=== PATIENT | female | born 1955 | race Caucasian/White ===

== ENCOUNTER 2018-08-29 09:55 | Inpatient (IN) ==
--- NOTE | 2018-08-29 10:28 | Emergency Department Note ---
Disposition Clinical Impression: Cellulitis, History of surgery on wrist Disposition: Admitted As Inpatient Time of Disposition: 11:20 General Adult HPI - General Chief complaint: ED Skin/Abscess/Foreign Body Stated complaint: wound Time Seen by Provider: 08/29/18 10:15 - History of Present Illness HPI Narrative: 63-year-old female seen a few days ago in the emergency department for hand cellulitis. The patient reports she has been taking Bactrim and Keflex which have not been helpful. She reports she followed up yesterday and the recommendation was for continued Keflex and Bactrim, however today her hands become more red and swollen with spreading redness beyond the demarcation pen lines delineating the original infection. The patient reports he may have been provoked or scratched a few days ago. X-rays were negative in the emergency department for foreign body. There is no history of coldness blueness numbness or weakness right upper extremity. The patient has no history of diabetes for him is a Up-to-date she denies chest pain shortness breath abdominal pain vomiting diarrhea or any other acute complaint or concern. Progressive redness swelling and pain in the right hand wrist and forearm are reported. She has a history of prior wrist surgery. Pain Scale: 1 - Related Data Home Medications Medication Instructions Recorded Confirmed Cholecalciferol (D-3) [Vitamin D] 5,000 unit PO DAILY 10/25/17 07/04/18 Levothyroxine [Synthroid] 25 mcg PO 0630 10/25/17 07/04/18 Previous Rx's Medication Instructions Recorded Levothyroxine [Synthroid] 125 mcg PO 0630 #30 tablet 07/04/18 Sulfamethoxazole/Trimeth DS 1 each PO BID #20 tablet 08/27/18 [Bactrim DS] cephALEXin [Keflex] 500 mg PO QID #40 capsule 08/27/18 Allergies Allergy/AdvReac Type Severity Reaction Status Date / Time No Known Allergies Allergy Verified 10/25/17 08:28 All systems ED: reviewed and negative except as stated. Past Medical History - Past Medical History Medical history: Reports: arthritis, GERD, thyroid disease, other Surgical history: Reports: other Psychiatric history: Reports: no psych history - Social History Smoking Status: Never smoker Smokeless Tobacco Status: No Alcohol use: Reports: none Drug use: Reports: none Physical Exam - General Limitations: no limitations General appearance: alert, in no apparent distress - Head Head exam: atraumatic, normocephalic, normal inspection - Eye Eye exam: Present: normal appearance, PERRL, EOMI - ENT ENT exam: normal exam, normal oropharynx, mucous membranes moist - Neck Neck exam: Present: normal inspection, full ROM, trachea midline - Chest Chest inspection: Present: normal inspection, symmetric chest wall rise - Respiratory Respiratory exam: Present: normal lung sounds bilaterally. Absent: respiratory distress, prolonged expiratory phase - Cardiovascular Cardiovascular exam: Present: regular rate, normal rhythm, irregular rhythm - Abdominal Exam Abdominal exam: Present: soft, Non-Tender, normal bowel sounds. Absent: tenderness, distention, guarding, rebound, rigidity - Extremities Exam Extremities exam: Present: full ROM, normal capillary refill, other (The right hand shows swelling over the dorsum mostly and there is spreading redness and edema in the right wrist area progressing up the forearm well beyond the original pen tate delineation lines. There is an open lesion in the webspace between the first and second digits. No active drainage. No crepitance of the skin no silke blackening or blistering. There is no evidence of neurovascular or neuromuscular compromise in any extremity.). Absent: joint swelling, calf tenderness - Back Exam Back exam: Absent: tenderness, CVA tenderness (R), CVA tenderness (L), vertebral tenderness - Neurological Exam Neurological exam: Present: alert, oriented X3, CN II-XII intact. Absent: motor sensory deficit - Psychiatric Psychiatric exam: Present: normal affect, normal mood - Skin Skin exam: Present: warm, dry. Absent: cyanosis, diaphoresis Course Vital Signs Temperature 97.3 F L 08/29/18 09:57 Pulse Rate 69 08/29/18 09:57 Respiratory Rate 16 08/29/18 09:57 Blood Pressure 137/86 08/29/18 09:57 O2 Sat by Pulse Oximetry 100 08/29/18 09:57 Temperature 97.3 F L 08/29/18 10:38 Pulse Rate 69 08/29/18 10:38 Respiratory Rate 16 08/29/18 10:38 Blood Pressure 137/86 08/29/18 10:38 O2 Sat by Pulse Oximetry 100 08/29/18 10:38 Oxygen Delivery Oxygen Delivery Room Air Medical Decision Making - [facility] Narrative Medical decision making narrative: The patient's x-ray from a few days ago showed hardware intact. No foreign body identified. The patient describes increasing redness and swelling in the right upper extremity, clinical exam so significant erythema and edema. The patient does not appear to meet SIRS/sepsis criteria, however, based on the patient's progressive swelling and erythema and cellulitic change in the right upper extremity with a history of prior wrist surgery and apparent failed outpatient therapy I thought it would be appropriate to admit the patient to the hospital. IV access was ordered as well as vancomycin and Zosyn blood cultures and IV fluid. I discussed the case with the hospitalist on-call who has accepted the patient to their care, they recommended orthopedic consult and CT scan. Orthopedics has been consulted. CT scan has been ordered. The patient is agreeable to admission. - Lab Data Lab results reviewed: Yes I reviewed the patient's lab results. Result diagrams: 08/29/18 10:46 08/29/18 10:46 Lab Results 08/29/18 08/29/18 08/29/18 Range/Units 10:46 10:46 10:46 WBC 8.6 (4.3-11.1) K/mcL RBC 4.81 (3.82-4.97) M/mcL Hgb 13.0 (11.5-15.4) g/dL Hct 40.2 (35.3-44.9) % MCV 83.6 (83.0-100.0) fL MCH 27.0 L (28.0-33.3) pg MCHC 32.3 (31.6-35.5) g/dL RDW 12.7 (11.5-14.5) % Plt Count 203 (140-400) K/mcL MPV 10.9 (9.4-12.4) fL Immature Gran % 0.2 (0-4) % Seg Neutrophils % 79.4 % Lymphocytes % 10.8 % Monocytes % 7.5 % Eosinophils % 1.5 % Basophils % 0.6 % Neutrophils # 6.8 (1.6-8.9) K/mcL Lymphocytes # 0.9 (0.6-4.6) K/mcL Monocytes # 0.7 (0.0-1.3) K/mcL Eosinophils # 0.1 (0.0-0.6) K/mcL Basophils # 0.1 (0.0-0.2) K/mcL Sodium 140 (136-145) mEq/L Potassium 4.2 (3.5-5.1) mEq/L Chloride 108 H (98-107) mEq/L Carbon Dioxide 26 (23-29) mEq/L BUN 9 (8-23) mg/dL Creatinine 1.04 (0.60-1.20) mg/dL Est GFR ( Amer) > 60 (> 60) Est GFR (Non-Af Amer) 53 L (> 60) BUN/Creatinine Ratio 9 (6-26) Glucose 99 (70-105) mg/dL Calculated Osmolality 289 (280-300) Lactic Acid 0.8 (0.5-2.2) mmol/L Calcium 9.0 (8.6-10.3) mg/dL Total Bilirubin 0.4 (0.3-1.0) mg/dL AST 46 H (13-39) Units/L ALT 45 (7-52) Units/L Alkaline Phosphatase 141 H (34-104) Units/L C-Reactive Protein 92 H (Less than 10) mg/L Serum Total Protein 7.0 (6.4-8.9) g/dL Albumin 3.9 (3.5-5.7) g/dL Globulin 3.1 (2.4-3.5) g/dL Albumin/Globulin Ratio 1.3 (1.1-2.2) - Radiology Data Radiology results reviewed: Yes I reviewed the patient's radiology results.
[2018-08-29] MEDS ORDERED: 0.9 % Sodium Chloride 1,000 ML IVC ONE (10:37)
[2018-08-29] MEDS ORDERED: Piperacillin/Tazobactam 3.375 GM in Water for inj. (sterile) 20 ML 20 ML IVP ONE (10:38)
[2018-08-29 11:05] LABS: Basophils # 0.1 K/mcL (0.0-0.2); Basophils % 0.6 %; Eosinophils # 0.1 K/mcL (0.0-0.6); Eosinophils % 1.5 %; Hematocrit 40.2 % (35.3-44.9); Immature Granulocytes % 0.2 % (0-4); Lymphocytes # 0.9 K/mcL (0.6-4.6); Lymphocytes % 10.8 %; Mean Corpuscular HGB Conc 32.3 g/dL (31.6-35.5); Mean Corpuscular Volume 83.6 fL (83.0-100.0); Mean Platelet Volume 10.9 fL (9.4-12.4); Monocytes # 0.7 K/mcL (0.0-1.3); Monocytes % 7.5 %; Neutrophils # 6.8 K/mcL (1.6-8.9); Platelet Count 203 K/mcL (140-400); Red Blood Count 4.81 M/mcL (3.82-4.97); Red Cell Distribution Width 12.7 % (11.5-14.5); Segmented Neutrophils % 79.4 %
[2018-08-29 11:19] LABS: Alanine Aminotransferase 45 Units/L (7-52); Albumin 3.9 g/dL (3.5-5.7); Albumin/Globulin Ratio 1.3 (1.1-2.2); Alkaline Phosphatase 141 Units/L (34-104); Aspartate Amino Transferase 46 Units/L (13-39); BUN/Creatinine Ratio 9 (6-26); Bilirubin,Total 0.4 mg/dL (0.3-1.0); Blood Urea Nitrogen 9 mg/dL (8-23); C-Reactive Protein 92 mg/L (Less than 10); Carbon Dioxide 26 mEq/L (23-29); Chloride 108 mEq/L (98-107); Globulin 3.1 g/dL (2.4-3.5); Glucose 99 mg/dL (70-105); Osmolality,Calculated 289 (280-300); Potassium 4.2 mEq/L (3.5-5.1); Sodium 140 mEq/L (136-145); eGFR For Non-African Americans 53 (> 60)
[2018-08-29] MEDS ORDERED: Isovue-370 500 ML BOTTLE IVP ONE (11:19)
--- NOTE | 2018-08-29 14:13 | Orthopedic Consult Note ---
Date of Encounter: 08/29/18 Time of Encounter: 14:13 Assessment and Plan (1) Cellulitis of hand, right Current Visit: No Status: Acute The diagnosis and treatment conditions were discussed with the patient. No visible fluid collection on CT scan. No current plans for surgical intervention. Continue IV antibiotics per the primary team. Will continue to follow exam. History of Present Illness HPI: Ms. Hammer is a 63 year old female admitted with right hand cellulitis. Patient states this started a few days ago after puncture wound in the area of the dorsal webspace between the thumb and index finger. She progressive erythema and swelling, and pain. She is seen in the emergency department a few days ago and was started on Bactrim and Keflex, however erythema progressed and has now advanced over the dorsum of her hand toward her forearm. She does have some drainage from the puncture wound. Denies any fevers or chills, SOB, CP nausea or vomiting. Does have a history of a prior ORIF of the right distal radius. Past Med Surg Social Fam HX - Past Medical History Medical history: arthritis, GERD, thyroid disease, other Additional medical history: goiter. arhtitis- subluxation in lower back, shoulder, knees. low back, neck and shoulder pain. childhood- measles, mumps, chicken pox. [place] 2015- goiter, multiple sub CM nodules, L>R. thyroid nodule biopsy inconclusive - appears cystic - repeat US 01/2018. mod DD dysfunction, otherwise normal echo, stress test ormal - offered BB - declined Psychiatric history: no psych history - Past Surgical History Surgical History: other Additional surgical history: tonsillectomy. tubal ligation. rt wrist open reduction and internal fixation of the distal radius. thyroid biopsy. S/P D&C, hysteroscopy - Social History Smoking Status: Never smoker Smokeless Tobacco Status: No Alcohol use: none Drug use: none - Family History Father Hx Family Cancer: Yes Medications and Allergies Levothyroxine [Synthroid] 125 mcg PO 0630 #30 tablet 07/04/18 [Rx] Sulfamethoxazole/Trimeth DS [Bactrim DS] 1 each PO BID #20 tablet 08/27/18 [Rx] cephALEXin [Keflex] 500 mg PO QID #40 capsule 08/27/18 [Rx] Cholecalciferol (Vitamin D3) [Dialyvite Vitamin D] 5,000 units PO DAILY 08/29/18 [History] metroNIDAZOLE [VANDAZOLE 0.75% Vag Gel] 1 appl VG DAILY 08/29/18 [History] Allergy/AdvReac Type Severity Reaction Status Date / Time No Known Allergies Allergy Verified 08/29/18 12:21 All Systems Reviewed: The remainder of the systems were reviewed and are negative except as noted in the HPI. Physical Exam - Constitutional Vitals: Temp Pulse Resp BP Pulse Ox 97.3 F L 69 16 137/86 100 08/29/18 10:38 08/29/18 10:38 08/29/18 10:38 08/29/18 10:38 08/29/18 10:38 Exam: Consult Exam: Constitutional -Vitals reviewed -The patient is well developed and well nourished. -Mood is pleasant. -The patient is well groomed. Psychiatric -The patient is fully alert and oriented x 3. Respiratory: -Respiratory effort normal Abdomen: -Soft abdomen -Non tender -Non distended: Left upper extremity: -No deformities. The overlying skin is intact. No obvious signs of acute trauma. -No tenderness to palpation throughout. -No significant pain with passive motion of the shoulder, elbow, wrist, and fingers within the limits of the bed. -Able to make an "OK" sign, cross the index and long fingers, and extend the thumb. -Sensation grossly intact to light touch throughout the median, radial, and ulnar distributions. -Radial pulse is present; Fingers have good capillary refill. Right upper extremity: -Erythema over the dorsum of the hand extending down to the wrist and proximal forearm. Tenderness over the area. Puncture wound in the area of the dorsal aspect of the thumb and index webspace with a small amount of purulent drainage. -No significant pain with passive motion of the shoulder, elbow, wrist, and fingers within the limits of the bed. -Able to make an "OK" sign, cross the index and long fingers, and extend the thumb. -Sensation grossly intact to light touch throughout the median, radial, and ulnar distributions. -Radial pulse is present; Fingers have good capillary refill. Left lower extremity: -No deformities. The overlying skin is intact. No obvious signs of acute trauma. -No tenderness to palpation throughout. -No pain with passive motion of the hip, knee, ankle, and toes within the limits of the bed. -No pain with axial loading of the thigh. -Able to dorsiflex and plantarflex the ankle and toes. -Sensation is grossly intact to light touch throughout the sural, saphenous, superficial peroneal, and deep peroneal distributions. -Toes have good capillary refill. Right lower extremity: -No deformities. The overlying skin is intact. No obvious signs of acute trauma. -No tenderness to palpation throughout. -No pain with passive motion of the hip, knee, ankle, and toes within the limits of the bed. -No pain with axial loading of the thigh. -Able to dorsiflex and plantarflex the ankle and toes. -Sensation is grossly intact to light touch throughout the sural, saphenous, superficial peroneal, and deep peroneal distributions. -Toes have good capillary refill. Results - Labs Result Diagrams: 08/29/18 10:46 08/29/18 10:46 Labs: Abnormal lab results MCH 27.0 pg (28.0-33.3) L 08/29/18 10:46 Chloride 108 mEq/L (98-107) H 08/29/18 10:46 Est GFR (Non-Af Amer) 53 (> 60) L 08/29/18 10:46 AST 46 Units/L (13-39) H 08/29/18 10:46 141 Units/L (34-104) H 08/29/18 10:46 92 mg/L (Less than 10) H 08/29/18 10:46 H & H 08/29/18 Range/Units 10:46 Hgb 13.0 (11.5-15.4) g/dL Hct 40.2 (35.3-44.9) % All other labs normal. - Diagnostic results Wrist/Hand CT: report reviewed, image reviewed Consult Discharge Plan - Plan Referrals: Paola Pina, INDUSTRIAL [employer]PERATOR [Primary Care Provider] -
--- NOTE | 2018-08-29 15:09 | Internal Med History&Physical ---
Date of Encounter: 08/29/18 Time of Encounter: 11:00 Internal Medicine - H&P: HPI Chief complaint: hand cellulitis History of present illness: Ms. Hammer is a 63 year old female admitted with right hand erythema , warmness and tenderness of the left hand. The patient stated that she sustained a puncture wound in the area of the dorsal webspace between the thumb and index finger. and later the patient started experiencing progressive erythema and swelling, and pain. She evaluated by the ER staff couple of days prior to her presentation today and was started on antibiotic regimen with Bactrim and Keflex and was discharged home. The patient was started on empiric IV antibiotics by the ER, and was admitted for further evaluation and management. Past Med Surg Social Fam HX - Past Medical History Medical history: arthritis, GERD, thyroid disease, other Additional medical history: goiter. arhtitis- subluxation in lower back, shoulder, knees. low back, neck and shoulder pain. childhood- measles, mumps, chicken pox. [place] 2014- goiter, multiple sub CM nodules, L>R. thyroid nodule biopsy inconclusive - appears cystic - repeat US 01/2018. mod DD dysfunction, otherwise normal echo, stress test ormal - offered BB - declined Psychiatric history: no psych history - Past Surgical History Surgical History: other Additional surgical history: tonsillectomy. tubal ligation. rt wrist open reduction and internal fixation of the distal radius. thyroid biopsy. S/P D&C, hysteroscopy - Social History Smoking Status: Never smoker Smokeless Tobacco Status: No Alcohol use: none Drug use: none - Family History Father Hx Family Cancer: Yes Internal Medicine - H&P: Meds Levothyroxine [Synthroid] 125 mcg PO 0630 #30 tablet 07/04/18 [Rx] Cholecalciferol (Vitamin D3) [Dialyvite Vitamin D] 5,000 units PO DAILY 08/29/18 [History] metroNIDAZOLE [VANDAZOLE 0.75% Vag Gel] 1 appl VG DAILY 08/29/18 [History] Amoxicillin/Clavulanate [Augmentin] 875 mg PO BIDWM #12 tablet 08/30/18 [Rx] Doxycycline 100 mg PO BID #12 capsule 08/30/18 [Rx] Allergy/AdvReac Type Severity Reaction Status Date / Time No Known Allergies Allergy Verified 08/29/18 12:21 All Systems PM: A 10-system review of systems was performed and is negative for pertinent findings except as documented above in the HPI. - Constitutional Constitutional: no chills, no fever(s), no night sweats - EENT Eyes: no change in vision, no discharge, no pain, no photophobia Ears: no ear discharge, no ear pain, no tinnitus Nose, mouth and throat: no dysphagia, no nasal discharge, no neck pain, no sore throat - Cardiovascular Cardiovascular ROS IM: no chest pain, no diaphoresis, no dyspnea, no lightheadedness, no palpitations, no syncope - Respiratory Respiratory: no cough, no dyspnea, no wheezing, no excessive phlegm production - Gastrointestinal Gastrointestinal: no abdominal pain, no diarrhea, no hematemesis, no hematochezia, no melena, no nausea, no vomiting - Genitourinary Genitourinary: no change in urinary stream, no dysuria, no flank pain, no hematuria - Musculoskeletal Musculoskeletal ROS IM: no numbness, no tingling - Integumentary Integumentary IM: erythema, non-healing lesions, no rash, no unusual bruising - Neurological Neurological ROS: no confusion, no convulsions, no focal weakness, no numbness, no tingling, no tremor(s) - Hematologic/Lymphatic Hematologic/Lymphatic: no easy bruising - Constitutional Vitals: Temp Pulse Resp BP Pulse Ox 97.8 F 72 16 151/65 99 08/29/18 14:35 08/29/18 14:35 08/29/18 14:35 08/29/18 14:35 08/29/18 14:35 Exam: As below - Head Head exam: Present: atraumatic, normocephalic - Eye Eye exam: Present: PERRL, conjuntiva pink, sclera anicteric Pupils: Present: PERRL - Neck Neck exam general surgery: Present: supple, trachea midline. Absent: lymphadenopathy - Respiratory Respiratory exam: Present: CTAB. Absent: accessory muscle use, rales, rhonchi, wheezes - Cardiovascular Cardiovascular exam: Present: RRR, +S1, +S2. Absent: diastolic murmur, gallop, rubs, systolic murmur - GI/Abdominal GI/Abdominal exam: Present: normal bowel sounds, soft, no peritoneal signs. Absent: distended, tenderness - Extremities Exam Extremities exam: Present: warm, radial pulses palpable and symmetrical. Absent: calf tenderness, cyanotic, pedal edema - Neurological Exam Neurological exam: Present: CN II-XII intact, oriented X3, no focal deficits. Absent: pronater drift, facial droop, speech deficit - Skin Skin exam: Present: dry, erythema, warm Internal Med - H&P Results - Labs CBC & Chem 7: 08/29/18 17:11 08/30/18 04:23 Labs: Short CBC 08/29/18 Range/Units 10:46 WBC 8.6 (4.3-11.1) K/mcL Hgb 13.0 (11.5-15.4) g/dL Hct 40.2 (35.3-44.9) % Plt Count 203 (140-400) K/mcL Neutrophils # 6.8 (1.6-8.9) K/mcL BMP 08/29/18 10:46 Sodium 140 Potassium 4.2 Chloride 108 H Carbon Dioxide 26 BUN 9 Creatinine 1.04 Glucose 99 Calcium 9.0 Liver Function 08/29/18 Range/Units 10:46 Total Bilirubin 0.4 (0.3-1.0) mg/dL AST 46 H (13-39) Units/L ALT 45 (7-52) Units/L Alkaline Phosphatase 141 H (34-104) Units/L Albumin 3.9 (3.5-5.7) g/dL - Impressions ITS Impressions Upper Extremity CT 08/29/18 11:19 IMPRESSION: 1. Mild dorsal subcutaneous fat stranding of the distal forearm and hand compatible with cellulitis. No drainable fluid collection. 2. No acute osseous abnormality. D/ / Chito Stephens MD / Chito Stephens MD Interpreting Provider: Chito Stephens MD - Assessment and Plan (1) Cellulitis of hand, right Status: Acute Assessment and plan: visit patient on empiric IV antibiotics with vancomycin and Zosyn, surgery was consulted for further evaluation and management management (2) History of surgery on wrist Status: Acute Assessment and plan: surgery was consulted for further evaluation (3) Status post thyroidectomy Status: Acute Assessment and plan: we'll continue home thyroxin (4) DVT prophylaxis Status: Acute Assessment and plan: heparin 5000 twice a day - Time Spent With Patient Total time spent is greater than 50% in coordination of care (as documented) at patient's floor/unit and/or counseling patient:
[2018-08-29] MEDS ORDERED: OXYCODONE Oral CONC 10 MG/0.5 ML ORAL.SYG SL PRN (16:31)
[2018-08-29] MEDS ORDERED: *HR* HYDROcodone/Acet 5/325 mg TABLET PO PRN (16:31)
[2018-08-29] MEDS ORDERED: Acetaminophen 325 MG TABLET PO PRN (16:31)
[2018-08-29] MEDS ORDERED: Naloxone 0.4 MG/ML INJ IVP PRN (16:31)
[2018-08-29] MEDS ORDERED: Ondansetron ODT 4 MG TAB.RAPDIS SL PRN (16:31)
[2018-08-29] MEDS ORDERED: 0.9 % Sodium Chloride 1,000 ML IVC SCH (16:45)
[2018-08-29 17:32] LABS: Basophils # 0.1 K/mcL (0.0-0.2); Basophils % 0.8 %; Eosinophils # 0.3 K/mcL (0.0-0.6); Eosinophils % 3.9 %; Hematocrit 34.9 % (35.3-44.9); Immature Granulocytes % 0.2 % (0-4); Lymphocytes # 1.2 K/mcL (0.6-4.6); Lymphocytes % 14.1 %; Mean Corpuscular HGB Conc 32.7 g/dL (31.6-35.5); Mean Corpuscular Volume 82.5 fL (83.0-100.0); Mean Platelet Volume 11.1 fL (9.4-12.4); Monocytes # 0.8 K/mcL (0.0-1.3); Monocytes % 9.5 %; Platelet Count 180 K/mcL (140-400); Red Blood Count 4.23 M/mcL (3.82-4.97); Red Cell Distribution Width 12.8 % (11.5-14.5); Segmented Neutrophils % 71.5 %
[2018-08-29 17:33] LABS: Hemoglobin 11.4 g/dL (11.5-15.4)
[2018-08-30 05:21] LABS: Activated Partial Thrombo Time 34.4 Seconds (26.0-36.0)
[2018-08-30 05:28] LABS: Alanine Aminotransferase 28 Units/L (7-52); Albumin 3.2 g/dL (3.5-5.7); Albumin/Globulin Ratio 1.3 (1.1-2.2); Alkaline Phosphatase 104 Units/L (34-104); Aspartate Amino Transferase 21 Units/L (13-39); BUN/Creatinine Ratio 11 (6-26); Bilirubin,Total 0.4 mg/dL (0.3-1.0); Blood Urea Nitrogen 11 mg/dL (8-23); Calcium 7.9 mg/dL (8.6-10.3); Carbon Dioxide 21 mEq/L (23-29); Chloride 112 mEq/L (98-107); Chol/HDL Ratio 2.8 (0-4.9); Cholesterol 147 mg/dL (< 200); Globulin 2.4 g/dL (2.4-3.5); Glucose 94 mg/dL (70-105); HDL Cholesterol 53 mg/dL (40-59); LDL Cholesterol,Calculated 82 mg/dL (0-99); Osmolality,Calculated 289 (280-300); Phosphorous 2.3 mg/dL (2.7-4.5); Potassium 3.8 mEq/L (3.5-5.1); Sodium 140 mEq/L (136-145); Total Protein 5.6 g/dL (6.4-8.9); Triglycerides 59 mg/dL (< 150); eGFR For Non-African Americans 53 (> 60)
[2018-08-30] MEDS ORDERED: Piperacillin/Tazobactam 3.375 GM in 0.9 % Sodium Chloride Mini Bag 100 ML IVPB SCH (08:00)
[2018-08-30] MEDS ORDERED: Cholecalciferol (D-3) 1,000 UNIT TABLET PO SCH (09:00)
--- NOTE | 2018-08-30 12:13 | Internal Med Progress Note ---
Hospitalist Progress Note - Encounter Date of Encounter: 08/30/18 - Exam Vitals: Temp Pulse Resp BP Pulse Ox 98.0 F 79 16 109/72 97 08/30/18 10:05 08/30/18 10:05 08/30/18 10:05 08/30/18 10:05 08/30/18 10:05 - Assessment and Plan (1) Cellulitis of hand, right Current Visit: No Status: Acute Assessment and Plan: visit patient on empiric IV antibiotics with vancomycin and Zosyn, surgery was consulted for further evaluation and management management (2) Status post thyroidectomy Current Visit: No Status: Acute Assessment and Plan: we'll continue home thyroxin (3) History of surgery on wrist Current Visit: Yes Status: Acute Assessment and Plan: surgery was consulted for further evaluation (4) DVT prophylaxis Current Visit: Yes Status: Acute - Time Spent with Patient Total time spent is greater than 50% in coordination of care (as documented) at patient's floor/unit and/or counseling patient: Internal Medicine: Result - Labs CBC & Chem 7: 08/29/18 17:11 08/30/18 04:23 Labs: Short CBC 08/29/18 Range/Units 17:11 WBC 8.5 (4.3-11.1) K/mcL Hgb 11.4 L D (11.5-15.4) g/dL Hct 34.9 L (35.3-44.9) % Plt Count 180 (140-400) K/mcL Neutrophils # 6.0 (1.6-8.9) K/mcL BMP 08/30/18 04:23 Sodium 140 Potassium 3.8 Chloride 112 H Carbon Dioxide 21 L BUN 11 Creatinine 1.04 Glucose 94 Calcium 7.9 L Liver Function 08/30/18 Range/Units 04:23 Total Bilirubin 0.4 (0.3-1.0) mg/dL AST 21 (13-39) Units/L ALT 28 (7-52) Units/L Alkaline Phosphatase 104 (34-104) Units/L Albumin 3.2 L (3.5-5.7) g/dL - ABG Interpretation ABG results: PT/INR, D-dimer PT 11.0 Seconds (9.4-12.1) 08/30/18 04:23 - Impressions Impressions Upper Extremity CT 08/29/18 11:19 IMPRESSION: 1. Mild dorsal subcutaneous fat stranding of the distal forearm and hand compatible with cellulitis. No drainable fluid collection. 2. No acute osseous abnormality. D/ / Chito Stephens MD / Chito Stephens MD Interpreting Provider: Chito Stephens MD Consult Discharge Plan - Plan Referrals: Paola Pina, [employer] COORDIN[employer]ETING [employer]ES [Primary Care Provider] -
[2018-08-30 14:05] VITALS: BP 132/79
--- NOTE | 2018-08-30 17:07 | Discharge Summary ---
Orders not resulted at time of discharge: Pending orders 08/29/18 11:49 Culture,Blood [BC] Stat 09/01/18 04:00 Vancomycin,Trough Timed Date of Encounter: 08/30/18 Time of Encounter: 17:00 - Discharge Diagnosis (1) Cellulitis of hand, right Priority: Primary Status: Acute Assessment and Plan: 63 year old female admitted with right hand erythema , warmness and tenderness of the left hand. The patient stated that she sustained a puncture wound in the area of the dorsal webspace between the thumb and index finger. and later the patient started experiencing progressive erythema and swelling, and pain. She evaluated by the ER staff couple of days prior to her presentation today and was started on antibiotic regimen with Bactrim and Keflex and was discharged home. The patient was started on empiric IV antibiotics by the ER, and was admitted for further evaluation and management. She was started on on empiric IV antibiotics with vancomycin and Zosyn. Orthopedic surgery was consulted for further evaluation and management management. BY next day, her swelling and redness had reduced considerably. Per cori, ortho was paged and said patient was okay to go home with no surgical intervention indicated. She was discharged to complete a course of augmentin and doxycycline fro 6 days (2) Status post thyroidectomy Priority: Primary Status: Acute (3) History of surgery on wrist Priority: Primary Status: Acute (4) DVT prophylaxis Priority: Primary Status: Acute Hospital course: Ms. Hammer is a 63 year old female - Time Spent with Patient Total time spent providing and/or coordinating discharge services: - Discharge Medications Prescriptions: New Amoxicillin/Clavulanate [Augmentin] 875 mg PO BIDWM #12 tablet Doxycycline 100 mg PO BID #12 capsule Continued Levothyroxine [Synthroid] 125 mcg PO 0630 #30 tablet Cholecalciferol (Vitamin D3) [Dialyvite Vitamin D] 5,000 units PO DAILY metroNIDAZOLE [VANDAZOLE 0.75% Vag Gel] 1 appl VG DAILY Discontinued Sulfamethoxazole/Trimeth DS [Bactrim DS] 1 each PO BID #20 tablet cephALEXin [Keflex] 500 mg PO QID #40 capsule Home Medications: Levothyroxine [Synthroid] 125 mcg PO 0630 #30 tablet 07/04/18 [Rx] Cholecalciferol (Vitamin D3) [Dialyvite Vitamin D] 5,000 units PO DAILY 08/29/18 [History] metroNIDAZOLE [VANDAZOLE 0.75% Vag Gel] 1 appl VG DAILY 08/29/18 [History] Amoxicillin/Clavulanate [Augmentin] 875 mg PO BIDWM #12 tablet 08/30/18 [Rx] Doxycycline 100 mg PO BID #12 capsule 08/30/18 [Rx] Allergies/Adverse Reactions: Allergy/AdvReac Type Severity Reaction Status Date / Time No Known Allergies Allergy Verified 08/29/18 12:21 Date of admission: 08/29/18 15:27 Primary care physician: Paola Pina CNP Consults: 08/29/18 11:25 Consult to Orthopedic Surgery [CONS] Stat Consulting Provider: [facility] Reason for Consult: Hand and forearm cellulitis/consult at request of medicine Dr. Parker/staff notified and will communicate to him/in OR currently Time Notified: 11:26 Call Completed: Yes - Constitutional Vitals: Temp Pulse Resp BP Pulse Ox 97.5 F L 71 16 132/79 100 08/30/18 14:01 08/30/18 14:01 08/30/18 14:01 08/30/18 14:01 08/30/18 14:01 Exam: NAD right wrist erythema - Head Head exam: Present: atraumatic, normocephalic - Eye Eye exam: Present: PERRL, conjuntiva pink, sclera anicteric Pupils: Present: PERRL - Neck Neck exam general surgery: Present: supple, trachea midline. Absent: lymphad enopathy - Respiratory Respiratory exam: Present: CTAB. Absent: accessory muscle use, rales, rhonchi, wheezes - Cardiovascular Cardiovascular exam: Present: RRR, +S1, +S2. Absent: diastolic murmur, gallop, rubs, systolic murmur - GI/Abdominal GI/Abdominal exam: Present: normal bowel sounds, soft, no peritoneal signs. Absent: distended, tenderness - Extremities Exam Extremities exam: Present: warm, radial pulses palpable and symmetrical. Absent: calf tenderness, cyanotic, pedal edema - Neurological Exam Neurological exam: Present: CN II-XII intact, oriented X3, no focal deficits. Absent: pronater drift, facial droop, speech deficit - Skin Skin exam: Present: dry, intact - Patient Status Disposition: Home, Self-Care - Discharge Instructions Instructions: Cellulitis (GEN) Follow Up With: Paola Pina CNP [Primary Care Provider] - 09/01/18 1:45 pm
== END 2018-08-30 17:39 | disposition home or self-care (01) | DRG 603 ==
LOC: 3ANU 09:55 → EMEROOARM 09:55 → 3ANU 13:32
PROVIDERS: ADMIT Internal Medicine Nephrology; ATTEND Internal Medicine Nephrology